=== PATIENT | male | born 1975 | race Caucasian/White ===

== ENCOUNTER 2023-10-01 10:27 | Outpatient (CLI) | payer BC ==
[2023-10-01 12:44] LABS: Hemoglobin 16.1 g/dL (13.5-17.5); Mean Corpuscular HGB CONC 33.5 g/dL (32.0-36.0); Mean Corpuscular Hemoglobin 28.9 pg (27.0-33.0); Mean Platelet Volume 10.5 fl (7.4-10.4); Platelet Count 281 10x3/uL (150-450); RBC Distribution Width 12.8 % (11.5-14.5); Red Blood Cell (RBC) Count 5.58 10x6/uL (4.32-5.72); White Blood Cell (WBC) Count 9.4 10x3/uL (3.5-10.5)
[2023-10-01 12:55] LABS: PTT 27.1 sec (22.0-33.0); Prothrombin Time 10.3 sec (9.5-12.1)
[2023-10-01 13:00] LABS: Anion Gap 14 mmol/L (10-20); BUN (Urea Nitrogen) 16 mg/dL (8.9-20.6); Calc. Creatinine Clearance 0 mL/min (70-130); Calcium 9.4 mg/dL (7.8-10.44); Carbon Dioxide 25 mmol/L (22-29); Chloride 106 mmol/L (98-107); Estimated GFR 87; Glucose 90 mg/dL (70-105); Potassium 4.5 mmol/L (3.5-5.1); Sodium 140 mmol/L (136-145)
== END 2023-10-01 10:28 | disposition home or self-care (01) ==
LOC: LABBT 10:27
PROVIDERS: ATTEND Surgery
DX: Z01.818 Encounter for other preprocedural examination (principal); M50.10 Cervical disc disorder with radiculopathy, unspecified cervical region; M48.02 Spinal stenosis, cervical region
CPT/HCPCS: 80048; 85027; 85610; 85730; 93005; 93010

== ENCOUNTER 2023-10-07 05:34 | Observation (INO) | payer BC ==
[2023-10-01 11:57] VITALS: BMI 34.7
[2023-10-07] MEDS ORDERED: Clindamycin/D5W 900 mg/50 ml Premix Bag ONE (06:32)
[2023-10-07] MEDS ORDERED: LevoFLOXacin 500 mg/D5W 100 ML BAG ONE (06:32)
[2023-10-07] MEDS ORDERED: fentaNYL PF 100 MCG/2 ML SYRINGE ONE (06:41)
[2023-10-07] MEDS ORDERED: Thrombin 5000 UNITS/5 ML VIAL ONE (06:56)
[2023-10-07] MEDS ORDERED: Lidocaine 1% PF 5 ML VIAL ONE (07:48)
[2023-10-07] MEDS ORDERED: PROPOFOL 200 MG/20 ML VIAL ONE (07:48)
[2023-10-07] MEDS ORDERED: Succinylcholine 200 MG/10 ml SYRINGE FS ONE (07:48)
[2023-10-07] MEDS ORDERED: Dexamethasone 20 MG/5 ML VIAL ONE ×3 (07:48→09:10)
[2023-10-07] MEDS ORDERED: Rocuronium Bromide 10 MG/ML (10ML VIAL) ONE ×2 (07:48→09:47)
[2023-10-07] MEDS ORDERED: Ondansetron PF 4 MG/2 ML Vial ONE ×2 (07:48→09:12)
[2023-10-07] MEDS ORDERED: SUGAMMADEX SODIUM 200 MG/2 ML VIAL ONE (08:32)
[2023-10-07] MEDS ORDERED: fentaNYL 50 mcg/mL 1 mL Vial ONE ×2 (11:00→11:33)
[2023-10-07] MEDS ORDERED: Acetaminophen 325 MG TAB PO PRN (11:10)
[2023-10-07] MEDS ORDERED: Acetaminophen/Codeine 30-300mg Tablet PO PRN (11:10)
[2023-10-07] MEDS ORDERED: Ondansetron PF 4 MG/2 ML Vial IVP PRN (11:10)
[2023-10-07] MEDS ORDERED: HYDROcodone/Acetaminophen 7.5/325 mg Tablet PO PRN (11:10)
[2023-10-07] MEDS ORDERED: diphenhydrAMINE 25 MG CAP PO PRN (11:10)
[2023-10-07] MEDS ORDERED: Milk Of Magnesia 30 ML UDCUP PO PRN (11:10)
[2023-10-07] MEDS ORDERED: tiZANidine HCl 4 MG TAB PO PRN (11:13)
[2023-10-07] MEDS ORDERED: Phenol 177 ML BOT PO PRN (11:13)
[2023-10-07] MEDS ORDERED: Benzocaine/Menthol 1 LOZ LOZ PO PRN (11:13)
[2023-10-07] MEDS ORDERED: Ketorolac Tromethamine 30 MG/ML VIAL ONE (11:32)
[2023-10-07] MEDS: Ketorolac Tromethamine 30 MG/ML VIAL IVP SCH ×3 (12:50→23:27)
[2023-10-07] MEDS: Sodium Chloride 0.9% 1,000 ML IV SCH (13:38)
[2023-10-07] MEDS: Morphine 2 MG/ML VIAL SLOW IVP PRN ×2 (14:50→19:17)
[2023-10-07] MEDS: Clindamycin/D5W 900 MG in Premix 1 BAG IVPB SCH ×2 (14:55→21:03)
[2023-10-07] MEDS: Dexamethasone 4 MG TAB PO SCH ×2 (16:14→21:03)
[2023-10-07] MEDS: traMADol HCl 50 MG TAB PO PRN (19:17)
[2023-10-08] MEDS: traMADol HCl 50 MG TAB PO PRN (01:20)
[2023-10-08] MEDS: Sodium Chloride 0.9% 1,000 ML IV SCH (01:21)
[2023-10-08] MEDS: Dexamethasone 4 MG TAB PO SCH ×2 (04:33→09:23)
[2023-10-08] MEDS: Ketorolac Tromethamine 30 MG/ML VIAL IVP SCH (05:38)
[2023-10-08] MEDS: Clindamycin/D5W 900 MG in Premix 1 BAG IVPB SCH (05:38)
[2023-10-08 07:39] VITALS: BP 130/86; TEMP 98.3
[2023-10-10] MEDS ORDERED: FLU VACC QS2023-24(6MOS UP)/PF 60 MCG/0.5 ML SYRINGE IM ONE (09:00)
== END 2023-10-08 10:41 | disposition home or self-care (01) ==
LOC: SDC 05:34 → MSONC 12:42
PROVIDERS: ADMIT Surgery; ATTEND Surgery
PROC: 00NW0ZZ Release Cervical Spinal Cord, Open Approach (ICD-10-PCS; principal; 2023-10-07)
PROC: 0PH304Z Insertion of Internal Fixation Device into Cervical Vertebra, Open Approach (ICD-10-PCS; 2023-10-07)
DX: M54.12 Radiculopathy, cervical region (principal); M48.02 Spinal stenosis, cervical region; M50.223 Other cervical disc displacement at C6-C7 level
CPT/HCPCS: C1713; J1100; J1885; J1956; J2272; J2405; J2704; J3010; J3490; J8540

== ENCOUNTER 2023-11-19 10:27 | Outpatient (CLI) | payer BC | END 2023-11-19 10:28 | disposition home or self-care (01) | LOC: BICRAD 10:27 | PROVIDERS: ATTEND Surgery | DX: M54.12 Radiculopathy, cervical region (principal); Z98.890 Other specified postprocedural states | CPT/HCPCS: 72040 ==